=== PATIENT | female | born 1970 | race African-American/Black ===

== ENCOUNTER 2021-02-18 03:12 | Inpatient (IN) | payer BC ==
[~2021-02-18] VITALS: Ht 157.5 cm; Wt 100.0 kg
[~2021-02-18 03:12] MED LIST: DOXYCYCLINE 10100 MG PO; FLAGYL500 MG PO; NO HOME MEDICATIONS; NORCO 325 MG-51 TAB PO
[2021-02-18] MEDS ORDERED: ZOCOR5 MG (04:14)
[2021-02-18] MEDS ORDERED: ONE-A-DAY ESSE1 EACH PO (04:15)
[2021-02-18 04:26] LABS: BASO % 0.5 % (0.0-2.0); EOS # 0.1 (0.0-0.7); EOS % 1.3 % (0-4.0); GRAN # 2.4 (1.4-6.5); GRAN % 37.7 % (42.2-75.2); HEMATOCRIT 39.5 % (37.0-47.0); LYMPH # 3.1 (1.2-3.4); LYMPH % 49.6 % (20.0-51.0); MEAN CELL VOLUME 79 fl (80.0-100.0); MEAN CORPUSCULAR HEMOGLOBIN 28 pg (27.0-31.0); MEAN CORPUSCULAR HGB CONC 35 g/dl (33.0-37.0); MEAN PLATELET VOLUME 8.8 fl (7.4-10.4); MONO # 0.7 (0.1-0.6); MONO % 10.7 % (1.7-9.3); PLATELET COUNT 330 K/mm3 (130-400); RED BLOOD COUNT 4.98 M/mm3 (4.10-5.30); REDCELL DISTRIBUTION WIDTH-CV 12.6 % (11.5-14.5)
[2021-02-18 04:44] LABS: ALANINE AMINOTRANSFERASE 76 U/L (4-34); ALBUMIN 4.4 gm/dL (3.5-5.0); ALKALINE PHOSPHATASE 149 U/L (50-136); ANION GAP 10 mmol/L (7-16); AST,SGOT 72 U/L (15-37); BILIRUBIN,TOTAL 0.4 mg/dL (0.0-1.0); BLOOD UREA NITROGEN 7 mg/dL (7-17); CALCIUM 8.7 mg/dL (8.4-10.2); CARBON DIOXIDE 23 mmol/L (22-30); CREATININE, serum 0.48 (0.52-1.25); GLUCOSE 101 mg/dL (74-106); POTASSIUM 3.9 mmol/L (3.4-5.0); TOTAL PROTEIN 7.7 gm/dL (6.4-8.2)
[2021-02-18 04:48] LABS: SODIUM 116 mmol/L (137-145)
[2021-02-18 04:50] LABS: CHLORIDE 83 mmol/L (98-107)
[2021-02-18 04:58] LABS: LIPASE 148 U/L (23-300)
[2021-02-18 05:00] LABS: TROPONIN-I < 0.012 ng/mL (0.000-0.035)
[2021-02-18 05:37] LABS: MUCOUS Present /lpf; PH 7 (5-8); SQUAMOUS EPITHELIAL 0-2 /hpf; URINE APPEARANCE Cloudy; URINE BACTERIA None Seen /hpf; URINE BILIRUBIN Negative (NEGATIVE); URINE BLOOD Negative (NEGATIVE); URINE COLOR Straw; URINE GLUCOSE Negative (NEGATIVE); URINE KETONE Negative (NEGATIVE); URINE LEUKOCYTE ESTERASE Negative (NEGATIVE); URINE NITRATE Negative (NEGATIVE); URINE PROTEIN(semi-quant) Negative (NEGATIVE); URINE RBC 20-50 /hpf; URINE UROBILINOGEN Negative (NEGATIVE); URINE WBC 0-2 /hpf
[2021-02-18 06:06] LABS: CHOLESTEROL RISK RATIO 4.5
[2021-02-18 06:08] LABS: COLLECTION METHOD CLEAN CATCH
[2021-02-18 08:30] VITALS: BP 130/78; PULSE 56; TEMP 98.3
[2021-02-18 08:45] LABS: CALCIUM 8.4 mg/dL (8.4-10.2); CREATININE, serum 0.56 (0.52-1.25)
[2021-02-18] MEDS ORDERED: ZOCOR 40MG40 MG PO (08:46)
[2021-02-18] MEDS ORDERED: OMEGA-3 1000 MG1 CAP PO (08:46)
--- NOTE | 2021-02-18 10:54 | NUR ---
SW met with patient to complete intake. Patient states that she lives alone in [facility], next of kin is her father and mother Aaliyah at [phone] or [phone]. Patient provides that she does not utilize DME, is independent with ADL's and does not utiize any HH services at this time. Patient provides that her PCP needs to be established due to moving recently from [place], [place]. Patient states that she does not have a DPOA-HC, but wanted to review the documenation to appoint someone at a later time. SW provided DPOA-HC documenation for patient to review. SW provided and overview summary of document and provided patient with informaton on how to contact case management if she wished to proceed with completion. Patient states her plan is to return to her home upon DC and had no concerns with doing so. SW will continue to follow. DC plan: Home
[2021-02-18 11:19] LABS: CALCIUM 8.2 mg/dL (8.4-10.2); CREATININE, serum 0.61 (0.52-1.25); POTASSIUM 4.2 mmol/L (3.4-5.0)
--- NOTE | 2021-02-18 12:10 | NUR ---
Chaplain duarte and offered support with patient.
[2021-02-18 12:15] VITALS: BP 145/77; PULSE 66; TEMP 98.2
[2021-02-18 15:19] LABS: CALCIUM 8.2 mg/dL (8.4-10.2); CREATININE, serum 0.55 (0.52-1.25); POTASSIUM 3.6 mmol/L (3.4-5.0)
[2021-02-18 16:13] VITALS: BP 124/73; PULSE 63; TEMP 98.1
--- NOTE | 2021-02-18 18:59 | NUR ---
Pt had uneventful day. Remained A/O no seizure activity. Some R back pain reported, PRN pain medication administered. Eating and drinking without issues. No N/V today. No needs at this time. Call light within reach.
[2021-02-18 19:29] LABS: CREATININE, serum 0.52 (0.52-1.25); POTASSIUM 3.4 mmol/L (3.4-5.0)
[2021-02-18 19:35] VITALS: BP 126/70; PULSE 74; TEMP 97.9
--- NOTE | 2021-02-18 20:45 | NUR ---
Initial shift assessment done- states having RUQ pain 8/10, states feels like abdomen is distended, abd round ,soft with hypoactive bowel sounds--has been up walking the halls, will give Morphine IV for abd pain. IV fluids of 3% sodium continue at 35cc/hr- Jayshree TOMLIN is being called with every 2 hr sodium checks results.
[2021-02-18 23:53] VITALS: BP 154/78; PULSE 59; TEMP 97.7
[2021-02-19 03:13] VITALS: BP 137/75; PULSE 57; TEMP 97.8
--- NOTE | 2021-02-19 05:10 | NUR ---
Has not slept much tonight- VSS, having the right side/flank pain 8/10, Morphine IV given x3 this shift- also nauseated and Phenergan IV given x1,, patient states Morphine does take the pain down to 4/10, but after 2 hrs is back up to 8/10, Sodium level 120, Jayshree [employer] did stop the every 2 hr draws and will just do an AM draw this morning. Continue with 3% saline IV at 35cc/hr. Tele on, VSS.
[2021-02-19 07:24] LABS: HEMOGLOBIN 12.8 g/dl (12.5-16.0); MEAN CELL VOLUME 81 fl (80.0-100.0); MEAN CORPUSCULAR HEMOGLOBIN 28 pg (27.0-31.0); MEAN CORPUSCULAR HGB CONC 35 g/dl (33.0-37.0); PLATELET COUNT 295 K/mm3 (130-400); RED BLOOD COUNT 4.53 M/mm3 (4.10-5.30); REDCELL DISTRIBUTION WIDTH-CV 13.2 % (11.5-14.5)
[2021-02-19 07:28] LABS: HEMATOCRIT 36.6 % (37.0-47.0)
[2021-02-19 07:33] LABS: CALCIUM 8.1 mg/dL (8.4-10.2); CREATININE, serum 0.48 (0.52-1.25); POTASSIUM 3.8 mmol/L (3.4-5.0)
[2021-02-19 16:34] VITALS: BP 150/64; PULSE 62; TEMP 97.6
--- NOTE | 2021-02-19 18:47 | NUR ---
Patient has had an ok day. Pain medication regimen changed to help better her pain. Lovenox to be held per Dr. Stallworth for possible liver biopsy tomorrow. Patient will be NPO at midnight. Patient A&O. Denies any further needs at this time. VSS. Call light in reach.
[2021-02-19 20:17] VITALS: BP 138/80; PULSE 67; TEMP 97.5
--- NOTE | 2021-02-19 20:25 | NUR ---
Initial shift assessment done- states pain to right flank/back at 6,,will give Roxicodone at this time. Up on own in room- steady on feet.
[2021-02-19 23:43] VITALS: BP 130/77; PULSE 66; TEMP 97.8
[2021-02-20] VITALS (14 sets, daily range): BP systolic 133–177; BP diastolic 77–104; PULSE 62–78; TEMP 97.8–98.2
--- NOTE | 2021-02-20 06:21 | NUR ---
Did not sleep much last night--has been NPO since MN, Up in [place] for short walk, states nausea x1 last night- Zofran given as ordered. Last night 2199 sodium check was 124- Jayshree TOMLIN was informed around 2300. Pt did request Nicitine patch during the night- order obtained.
--- NOTE | 2021-02-20 08:00 | NUR ---
Pt assessment complete. Pt A/O x4 breathing even and unlabored on RA. Pt reports pain to R side of back 3/10, denies need for intervention at this time. No N/V. POC discussed with patient who verbalizes understanding. No needs at this time. Call light within reach.
--- NOTE | 2021-02-20 08:35 | NUR ---
Pt assessment complete. Pt is sitting up in bed upon entry, he is A/O x4. His breathing is currently even and unlabored on Airvo. Does have some SOB on exertion but feels he is recovering better. Pain to chest with deep inspiration. Denies diarrhea, is actually having very few stools, requesting PRN stool softners. Occasional nausea, feels this is more with the use of bipap. Pt does state he is having cramping to R calf. No swelling or redness present. POC discussed with patient who verbalizes understanding. No needs at this time. Call light within reach.
[2021-02-20 09:30] LABS: PROTHROMBIN TIME 11.4 SECONDS (9.7-12.8)
[2021-02-20 13:25] LABS: CALCIUM 8.6 mg/dL (8.4-10.2); CREATININE, serum 0.57 (0.52-1.25); POTASSIUM 4.2 mmol/L (3.4-5.0)
[2021-02-20] MEDS ORDERED: TYLENOL 500MG500 MG PO (13:47)
[2021-02-20] MEDS ORDERED: ROXICODONE 55 MG/TAB PO ×2 (13:50→14:15)
[2021-02-20] MEDS ORDERED: PHENERGAN12.5 MG/SU RC (13:50)
[2021-02-20] MEDS ORDERED: ZESTRIL 5MG5 MG PO (13:55)
--- NOTE | 2021-02-20 14:36 | NUR ---
The patient is to discharge today, 02/20. WILD met with the patient and her mother to address a PCP. The patient reports that she has been seeing a provider, Soo, at [facility] in [place]. She reports that she has not switched to a provider in [place] yet. The patient was interested in a list of providers in [place]. WILD provided her with that list. The patient and her mother had no other questions or concerns for WILD.
--- NOTE | 2021-02-20 15:10 | NUR ---
Discharge paperwork and instructions reviewed with the patient and her mother, all questions answered at this time. IV to LAC dc'd catheter tip intact. Pt wheeled out of facility by a staff member at this time.
[2021-02-22] MEDS ORDERED: ZOFRAN ODT4 MG PO (11:20)
[2021-03-10] MEDS ORDERED: ZYLOPRIM 300MG300 MG PO (10:49)
[2021-03-10] MEDS ORDERED: PHENERGAN12.5 MG/SU RC (10:49)
[2021-03-10] MEDS ORDERED: COMPAZINE 110 MG/TAB PO (10:49)
[2021-03-10] MEDS ORDERED: BIOFLEX PO (10:52)
[2021-03-10] MEDS ORDERED: NORCO 325 MG-51 TAB PO (13:38)
== END 2021-02-20 15:15 | disposition home or self-care (01) | DRG 644 ==
LOC: COL.ER 03:12 → MEDICAL 06:00
PROVIDERS: Emergency Medicine; Physician Assistant; Student in an Organized Health Care Education/Training Program; ADMIT Internal Medicine
PROC: 0FB03ZX Excision of Liver, Percutaneous Approach, Diagnostic (ICD-10-PCS; principal; 2021-02-20)
DX: E22.2 Syndrome of inappropriate secretion of antidiuretic hormone (principal); J90 Pleural effusion, not elsewhere classified; R18.0 Malignant ascites; C22.7 Other specified carcinomas of liver; C77.9 Secondary and unspecified malignant neoplasm of lymph node, unspecified; E78.5 Hyperlipidemia, unspecified; F32.9 Major depressive disorder, single episode, unspecified; F17.210 Nicotine dependence, cigarettes, uncomplicated; E87.8 Other disorders of electrolyte and fluid balance, not elsewhere classified; E66.01 Morbid (severe) obesity due to excess calories; F39 Unspecified mood [affective] disorder
CPT/HCPCS: OP; 99222-AI; 99232-AI; J1650; J1885; J2250; J2270; J2405; J2550; J3010; J7030; J7131; Q9967

== ENCOUNTER → 2021-07-13 | Outpatient (CLI) | payer MEDICAID ==
[~2021-07-13] MED LIST changes: +BIOFLEX PO; +COMPAZINE 110 MG/TAB PO; +OMEGA-3 1000 MG1 CAP PO; +ONE-A-DAY ESSE1 EACH PO; +PHENERGAN12.5 MG/SU RC; +ROXICODONE 55 MG/TAB PO; +TYLENOL 500MG500 MG PO; +ZESTRIL 5MG5 MG PO; +ZOCOR 40MG40 MG PO; +ZOCOR5 MG; +ZOFRAN ODT4 MG PO; +ZYLOPRIM 300MG300 MG PO
== END ==
LOC: COL.RAD 07:55
DX: C34.31 Malignant neoplasm of lower lobe, right bronchus or lung (principal)
CPT/HCPCS: Q9967

== ENCOUNTER → 2021-10-20 | Outpatient (CLI) | payer MEDICAID ==
[~2021-10-20] MED LIST changes: +ASPIRIN E.C. 8181 MG PO; +OXYCONTIN15 MG PO
== END ==
LOC: COL.RAD 10:46
DX: C34.90 Malignant neoplasm of unspecified part of unspecified bronchus or lung (principal)
CPT/HCPCS: Q9967

== ENCOUNTER → 2021-11-01 | Outpatient (CLI) | payer MEDICAID ==
[~2021-11-01] VITALS: Ht 157.5 cm; Wt 90.6 kg
[2021-11-01 13:13] VITALS: BP 145/90; PULSE 80; TEMP 99.1
[2021-11-01 14:28] VITALS: BP 148/98; PULSE 81
== END ==
LOC: COL.RAD 12:40
DX: C90.00 Multiple myeloma not having achieved remission (principal)
CPT/HCPCS: 19804

== ENCOUNTER → 2022-01-04 | Outpatient (CLI) | payer MEDICAID | LOC: COL.RAD 12-29 14:00 | DX: C34.31 Malignant neoplasm of lower lobe, right bronchus or lung (principal); C79.51 Secondary malignant neoplasm of bone; J90 Pleural effusion, not elsewhere classified | CPT/HCPCS: Q9967 ==

== ENCOUNTER 2022-02-01 15:14 | Emergency (ER) | payer MEDICAID ==
[~2022-02-01] VITALS: Ht 157.5 cm; Wt 75.5 kg
[2022-02-01 15:37] VITALS: TEMP 97.8
[2022-02-01 16:33] LABS: BASO % 0.3 % (0.0-2.0); EOS % 0.3 % (0.0-4.0); GRAN # 4.1 K/mm3 (1.4-6.5); GRAN % 63.1 % (42.2-75.2); LYMPH # 1.6 K/mm3 (1.2-3.4); LYMPH % 24.6 % (20.0-51.0); MEAN CELL VOLUME 88 fl (80.0-100.0); MEAN CORPUSCULAR HEMOGLOBIN 29 pg (27-31); MEAN CORPUSCULAR HGB CONC 33 g/dl (33.0-37.0); MONO # 0.8 K/mm3 (0.1-0.6); MONO % 11.5 % (1.7-9.3); PLATELET COUNT 232 K/mm3 (130-400); RED BLOOD COUNT 3.79 M/mm3 (4.10-5.30)
[2022-02-01 16:34] LABS: HEMATOCRIT 33.5 % (37.0-47.0)
[2022-02-01 16:45] LABS: PARTIAL THROMBOPLASTIN TIME 32.6 SECONDS (26.0-37.0)
[2022-02-01 16:52] LABS: ALBUMIN 3.9 gm/dL (3.5-5.0); BILIRUBIN,TOTAL 0.3 mg/dL (0.2-1.2); C-REACTIVE PROTEIN 0.11 mg/dL (0.00-0.50); CALCIUM 9.4 mg/dL (8.4-10.2); CREATININE, serum 0.63 mg/dL (0.57-1.11)
[2022-02-01 16:56] LABS: POTASSIUM 2.9 mmol/L (3.5-4.5)
[2022-02-01 17:16] LABS: INR 1.1 (0.8-3.0)
[2022-02-01] MEDS ORDERED: DECADRON 4MG TAB4 MG PO (17:20)
[2022-02-01] MEDS ORDERED: NORVASC 5MG5 MG/TAB PO (17:20)
[2022-02-01 18:55] VITALS: BP 158/104; PULSE 96
== END 2022-02-01 18:55 | disposition home or self-care (01) ==
LOC: COL.ER 15:14
PROVIDERS: Emergency Medicine
DX: C34.90 Malignant neoplasm of unspecified part of unspecified bronchus or lung (principal); C79.31 Secondary malignant neoplasm of brain; C78.7 Secondary malignant neoplasm of liver and intrahepatic bile duct; I10 Essential (primary) hypertension; E87.6 Hypokalemia; R13.10 Dysphagia, unspecified; E66.9 Obesity, unspecified; R26.89 Other abnormalities of gait and mobility; Z87.891 Personal history of nicotine dependence; Z79.899 Other long term (current) drug therapy
CPT/HCPCS: J0360; J1100; J1644; J3360; J3480; J7030; Q9967